=== PATIENT | female | born 1970 | race Caucasian/White ===

== ENCOUNTER → 2019-04-07 | Outpatient (CLI) | payer BC ==
--- NOTE | 2019-04-07 09:46 | KCIC ---
EXAM: Bilateral digital screening mammogram with tomosynthesis. HISTORY: 48-year-old female presents for screening mammography. TECHNIQUE: Full-field digital craniocaudal and mediolateral oblique 2D and 3D tomosynthesis images of both breasts are obtained for evaluation. Computer aided detection with BuddyBounceD software version 9.3 was applied. COMPARISON: 07/23/2016 BREAST PARENCHYMAL DENSITY: Level C - Heterogeneously dense. FINDINGS: There is asymmetric density within the 9:00 position of the left breast at anterior to mid depth in the mediolateral oblique projection, without a clear correlate on the prior study. This may be due to differences in imaging technique. There are additional areas of asymmetry and nodularity which are stable in appearance. There is no suspicious calcification or architectural distortion within either breast. IMPRESSION: BI-RADS Category 0: Incomplete: Needs additional imaging. RECOMMENDATION: Further evaluation with a full field true lateral view and spot compression view of the left breast to assess a small asymmetry described above is recommended. Sonographic imaging can also be performed if deemed indicated based on additional imaging findings. If your mammogram demonstrates that you have dense breast tissue, which could hide abnormalities, and if you have other risk factors for breast cancer that have been identified, you might benefit from supplemental screening tests that may be suggested by your ordering physician. Dense breast tissue, in and of itself, is a relatively common condition. This information is not provided to cause undue concern, but rather to raise your awareness and to promote discussion with your physician regarding the presence of other risk factors, in addition to dense breast tissue. A report of your mammography results will be sent to you and your physician. You should contact your physician if you have any questions or concerns regarding this report. Mammography is a sensitive method for finding small breast cancers, but it does not detect them all and is not a substitute for careful clinical examination. A negative mammogram does not negate a clinically suspicious finding and should not result in delay in biopsying a clinically suspicious abnormality. PQRS compliance statement - Patient information was entered into a reminder system with a target due date for the next mammogram. "Our facility is accredited by the [employer] Mammography Program." Electronically signed by: Aarti Guardado MD (04/07/2019 9:42 AM) [facility]
== END | disposition home or self-care (01) ==
LOC: KCIC MAMMO 08:58
PROVIDERS: ATTEND Nurse Practitioner
DX: Z12.31 Encounter for screening mammogram for malignant neoplasm of breast (principal)
CPT/HCPCS: 77063; 77067

== ENCOUNTER → 2019-04-21 | Outpatient (CLI) | payer BC ==
--- NOTE | 2019-04-21 10:19 | KCIC ---
LEFT DIAGNOSTIC MAMMOGRAPHY AND BREAST ULTRASOUND History: Abnormal screening mammogram. Comparison: Bilateral mammogram 04/07/2019 and July 23, 2016. Technique: Left ML and spot compression MLO digital mammogram views were obtained. Findings: Breast Tissue Density B : There are scattered areas of fibroglandular density. The nodular asymmetry in the left breast at the 9:00 position at anterior to mid depth does not completely resolve with spot compression views. Real-time ultrasound imaging of the left breast is performed. Probably corresponding to the finding on mammogram at the 9:00 position, 5cm from the nipple there is a heterogeneous ill-defined mass measuring 7 x 4 mm. There is mild posterior acoustic shadowing. Color Doppler demonstrates surrounding blood flow. IMPRESSION: There is a small mass at the 9:00 position 5 cm from the nipple on ultrasound that likely corresponds to the nodular asymmetry on mammogram. Recommend ultrasound guided biopsy. BI-RADS Category 4: Suspicious. The images were reviewed with computer-aided detection. Technologist informed the patient of the findings and recommendations. Findings called to Claudette at [facility] at 10:10 AM. Patient information is entered into the reminder system with a target due date for the next screening mammogram. Mammography is the most sensitive method for finding small breast cancers, but it does not detect them all and is not a substitute for careful clinical examination. A negative mammogram does not negate a clinically suspicious finding and should not result in delay in biopsying a clinically suspicious abnormality. "Our facility is accredited by the [employer] Mammography [employer]." Electronically signed by: Mamadou Bocanegra MD (04/21/2019 10:16 AM) [facility]
== END | disposition home or self-care (01) ==
LOC: KCIC MAMMO 07:49
PROVIDERS: ATTEND Nurse Practitioner
DX: N63.22 Unspecified lump in the left breast, upper inner quadrant (principal)
CPT/HCPCS: 76641; 77065

== ENCOUNTER → 2019-05-11 | Outpatient (CLI) | payer BC ==
--- NOTE | 2019-05-15 15:06 | PATHOLOGY ---
[facility] Accession Number: [id number] . 01 Material submitted: . breast - LEFT BREAST 9:00, 5 CM FN. Modifiers: left, 9:00, 5 CMFN . 01 Clinical history: . Left breast mass . 02 Diagnosis: Breast tissue, left breast mass 9:00 needle biopsies: - Fibrocystic changes with the following components: - Stromal fibrosis. - Mild duct ectasia. - Microcystic change. - Apocrine metaplasia. . (JPM:mac; 05/15/2019) QMS/05/15/2019 . 02 Comment: There is no atypia or evidence of malignancy. Please correlate with mammographic findings. (JPM:mac; 05/15/2019) . 02 Electronically signed: . Robin Fisher MD, Pathologist NPI- [id number] . 01 Gross description: . The specimen is received in formalin, labeled "Doleshal, Shayna, left breast" and consists of 4 distinct needle cores of yellow fibroadipose tissue measuring 1.4 cm to 2.0 cm in length and 0.2 cm each in diameter. They are entirely submitted in A1-A2. Also received are additional fragments of yellow tissue measuring 1.0 x 0.6 x 0.2 cm in aggregate which are submitted in A3. The specimen was obtained at 2:20 PM on 05/11/2019 and placed in formalin at 2:25 PM. The cold ischemic time is 5 minutes and the total formalin fixation time is greater than 6 hours for less than 72 hours. (SDY; 05/12/2019) SYU/SYU . 02 Pathologist provided ICD-10: N60.32, N60.42, N60.82 . 02 CPT . 472812 Specimen Comment: A courtesy copy of this report has been sent to Specimen Comment: [phone], . Specimen Comment: Report sent to / DR FERNANDEZ Performed at: 01 [facility] [address], [place] [id number] MD Rob Aiken MD Phone: [phone] Performed at: 02 [facility] [address], [place] [id number] MD Robin Fisher MD Phone: [phone]
--- NOTE | 2019-05-17 09:21 | RAD ---
Ultrasound-guided left breast biopsy, 05/11/2019: HISTORY: Suspicious breast nodule Previous studies demonstrated a mildly suspicious nodule at the 9:00 location approximately 5 cm from the nipple. Under local anesthesia, aseptic conditions and sonographic guidance the UserMojo biopsy instrument was passed into the posterior aspect of this nodule via a superolateral approach. Multiple 12-gauge vacuum-assisted core samples were obtained and sent to pathology for evaluation. A breast biopsy marker was then deposited the biopsy site. The biopsy instrument was removed and hemostasis obtained. Two-view postprocedural digital mammograms were then obtained to document position of the biopsy marker. There is a small hematoma at the biopsy site. The patient tolerated the procedure well and left the department in good condition. The subsequent pathology report indicated the presence of fibrocystic change with apocrine metaplasia and no evidence of malignancy. This is considered to be a concordant finding. Follow-up left mammography in 6 months and bilateral mammography at one year is suggested.
== END | disposition home or self-care (01) ==
LOC: US 12:32
PROVIDERS: ATTEND Nurse Practitioner
DX: N60.12 Diffuse cystic mastopathy of left breast (principal); I10 Essential (primary) hypertension; E66.9 Obesity, unspecified; Z68.30 Body mass index [BMI] 30.0-30.9, adult; Z88.8 Allergy status to other drugs, medicaments and biological substances
CPT/HCPCS: 19083; 77065; 88305; C1713; 19081; 76942

== ENCOUNTER → 2019-11-29 | Outpatient (CLI) | payer BC ==
--- NOTE | 2019-11-29 10:27 | KCIC ---
Left breast diagnostic digital mammograms: Reason for examination: Follow-up benign biopsy. Comparison is made to previous studies dated back to 07/23/2016. Interpretation was made with the benefit of CAD. The skin and nipple show no abnormalities. No abnormal axillary lymph nodes are seen. The breast parenchyma shows scattered fibroglandular density. (Breast density: Category B.) There is now a biopsy clip anteriorly at the 9:00 position. There appears to be some nodularity at the 2:00 B position of the left breast approximately 7 cm from the nipple. This may represent superimposition of tissues. Further evaluation with ultrasound will follow. There are no other dominant masses, suspicious calcifications or architectural distortions. Impression: Nodular density at the 2:00 B position of the left breast 7 cm from the nipple. This may represent superimposed tissues but ultrasound will follow. BI-RADS Category 0: Incomplete. Needs additional imaging evaluation. Left breast ultrasound: Comparison is made to previous studies dated 05/11/2019 and 04/21/2019. Ultrasound examination of the left breast and axilla was performed. There is some fibroglandular tissue in the 2:00 position but no discrete cystic or solid nodules are seen. No focal abnormality is seen at the site of biopsy at the 9:00 position 5 cm from the nipple. No abnormal appearing lymph nodes are seen in the left axilla. IMPRESSION: No suspicious abnormality seen sonographically. Recommend 6 month follow-up at the time of bilateral mammograms. BI-RADS Category 3: Probably Benign. "Our facility is accredited by the [employer] Mammography Program." This patient's information has been entered into a reminder system for the patient to be notified with the results of her examination and a target date for the next mammogram. Electronically signed by: Majo Gleason MD (11/29/2019 10:24 AM) [facility]
== END | disposition home or self-care (01) ==
LOC: KCIC MAMMO 09:00
PROVIDERS: ATTEND Family Medicine
DX: N63.21 Unspecified lump in the left breast, upper outer quadrant (principal); R92.2 Inconclusive mammogram
CPT/HCPCS: 76641; 77065; G0279; 77061

== ENCOUNTER → 2020-09-25 | Outpatient (CLI) | payer BC ==
--- NOTE | 2020-09-25 20:00 | KCIC ---
Bilateral diagnostic digital mammograms with 3-D tomosynthesis: Reason for examination: 6 month follow-up of the left breast. Comparison is made to previous studies dated back to 07/23/2016. Bilateral mammograms in CC and oblique projections were obtained with 2-D imaging and 3-D tomosynthesis imaging on a Siemens Inspiration unit and reviewed on the workstation. Interpretation was made with the benefit of CAD. The skin and nipples show no abnormalities. No abnormal axillary lymph nodes are seen. The breast parenchyma is heterogeneously dense. (Breast density: Category C.) There are no new dominant masses, suspicious calcifications or architectural distortion. There continues to be a nodule consistent with an intramammary lymph node at the 10:00 C position of the right breast which is stable. There is a small nodule associated with biopsy clip anterior 9:00 position of the left breast. There continue to be small nodular asymmetries bilaterally which are unchanged. Impression: Continued presence of a small nodule contained a biopsy clip at the anterior 9:00 position of the left breast. Continued presence of small nodular asymmetries bilaterally without change. Ultrasound to follow. Your patient's mammogram demonstrates that she has dense breast tissue (breast density category C or D), which could hide abnormalities, and if she has other risk factors for breast cancer that have been identified, she might benefit from supplemental screening tests that may be suggested by you as her ordering physician. Dense breast tissue, in and of itself, is a relatively common condition. Therefore, this information is not provided to cause undue concern, but rather to raise your awareness and to promote discussion with your patient regarding the presence of other risk factors, in addition to dense breast tissue. Your patient's mammography results will be sent to her. BI-RAD Category 0: Incomplete. Needs additional imaging evaluation. Left breast ultrasound: Comparison is made to previous study dated 11/29/2019. Ultrasound examination was performed with attention to the 2:00 and 9:00 positions and retroareolar position and the axilla. No discrete cystic or solid nodules or architectural distortions are seen. There is some ductal ectasia. No abnormal appearing lymph nodes are seen in the axilla. IMPRESSION: No suspicious abnormalities evident in the left breast. Recommend routine mammographic follow-up. BI-RADS Category 2: Benign. "Our facility is accredited by the [employer] Mammography Program." This patient's information has been entered into a reminder system for the patient to be notified with the results of her examination and a target date for the next mammogram. Electronically signed by: Majo Gleason MD (09/25/2020 7:57 PM) [id number]
== END ==
LOC: KCIC MAMMO 12:39
PROVIDERS: ATTEND Nurse Practitioner
DX: R92.2 Inconclusive mammogram (principal); N63.11 Unspecified lump in the right breast, upper outer quadrant; N63.24 Unspecified lump in the left breast, lower inner quadrant
CPT/HCPCS: 76641; 77066; G0279; 77062